=== PATIENT | male | born 1960 | race Caucasian/White ===

== ENCOUNTER → 2019-09-12 | Outpatient (CLI) | payer OTHER ==
--- NOTE | 2019-09-12 17:47 | EXE ---
[place] [address] STRESS ECHOCARDIOGRAM Name: KEN ROE Room: [facility]#: [id number] Admission: 09/12/19 Attend Phys: Tor Preston MD Discharge: Date of : 60 Date of Service: 09/12/19 1744 Report #: [id number] THIS REPORT FOR: cc: David Ivan Gregg R. DO Blick, David R. MD [facility] ~ APPROVED REPORT Study performed: 09/12/2019 11:11:22 Exam: Dobutamine Stress Echo Indication: Chest pain , Hyperlipidemia, Hypertension Patient Location: Out-Patient Stress Nurse: Tiffany Morales RN Supervising Physician: Tor Preston MD Ht: 6 ft 0 in HR: 75 bpm BP: 137/90 mmHg Medical History Medications: Lisinopril Allergies: Hydrocodone Cardiac Risk Factors: HTN, Hyperlipidemia, FHX of CAD Procedure The patient underwent a Pharmacological Stress Test using Dobutamine. Blood pressure, heart rate, and EKG were monitored. An Echocardiogram was performed by remediation technician in four stages in quad fashion. At peak stress, four selected images were obtained and placed side by side with resting images for comparison. Stress Test Details Stress Test: Pharmacological Stress Test using Dobutamine. HR Resting HR: 75 bpm Max Heart Rate (APMHR): 161 bpm Max HR Achieved: 136 bpm Target HR (85% APMHR): 136 bpm % of APMHR: 84 Recovery HR: 92 bpm HR response to stress: Normal HR response to stress BP Resting BP: 137/90 mmHg Max BP: 146/[place] [address] STRESS ECHOCARDIOGRAM Name: KEN ROE Room: [facility]#: [id number] Admission: 09/12/19 Attend Phys: Tor Preston MD Discharge: Date of : 60 Date of Service: 09/12/19 1744 Report #: [id number] Recovery BP: 142/68 mmHg BP response to stress: Normal blood pressure response to stress. ECG Resting ECG: Sinus Rhythm Stress ECG: Sinus Tachycardia ST Change: Normal Arrhythmia: VPC's Recovery ECG: Sinus Rhythm Recovery ST Change: Normal Recovery ST Deviation: 0 mm Recovery Arrhythmia: VPC Clinical Stress Symptoms: Chest pain Exercise duration: 13 min 48 sec Exercise capacity: 1.0 METs Pre-Stress Echo The resting Echocardiogram showed normal left ventricular contractility with an estimated Ejection Fraction of about 50-55%. Post-Stress Echo The stress Echocardiogram showed normal left ventricular contractility with an estimated Ejection Fraction of about >70%. Compared to rest, there were no stress-induced wall motion abnormalities. Conclusion Clinical Response: Equivocal Stress ECG Response: Non-ischemic Stress Echo Images: Non-ischemic low risk dobutamine stress echo for predicting future cardiac evetns. Other Information Study Quality: Good <Conclusion> low risk dobutamine stress echo for predicting future cardiac evetns. <ELECTRONICALLY SIGNED> By: Tor Preston MD, [facility] 09/12/191743 43 43 Tor Preston MD, FAC /INF
== END ==
LOC: M.CRD 08-25 09:19
DX: R07.89 Other chest pain (principal)

== ENCOUNTER → 2019-10-03 | Outpatient (CLI) | payer OTHER | LOC: M.LAB 14:18 | PROVIDERS: ATTEND Nurse Practitioner | DX: R53.83 Other fatigue (principal) ==